=== PATIENT | female | born 1950 | race Caucasian/White ===

== ENCOUNTER → 2020-03-07 | Outpatient (CLI) | payer MEDICARE ==
[~2020-03-07] MED LIST: LACTATED RINGERS 1,000 ML IV SCH; LOSARTAN; PRAVASTATIN
== END | disposition home or self-care (01) ==
LOC: STAR 09:30
PROVIDERS: ATTEND Student in an Organized Health Care Education/Training Program
DX: Z01.818 Encounter for other preprocedural examination (principal); Z11.59 Encounter for screening for other viral diseases; N20.0 Calculus of kidney
CPT/HCPCS: 36415; 87635

== ENCOUNTER 2020-03-12 07:43 | Day surgery (SDC) | payer MEDICARE ==
[2020-03-07 09:59] VITALS: BP 129/82
[~2020-03-12] VITALS: Ht 170.2 cm; Wt 91.0 kg
[~2020-03-12 07:43] MED LIST changes: -LOSARTAN; +LOSARTAN PO; -PRAVASTATIN; +PRAVASTATIN PO
[2020-03-12] MEDS ORDERED: FENTANYL PF 100 MCG/2ML ONE (08:39)
[2020-03-12] MEDS ORDERED: MIDAZOLAM 1 MG/ML, 2ML ONE (08:40)
[2020-03-12] MEDS ORDERED: LACTATED RINGERS 1,000 ML IV SCH (08:43)
[2020-03-12 08:47] VITALS: BP 158/96
[2020-03-12] MEDS ORDERED: CHLORHEXIDINE 15 ML UDC ONE (08:50)
[2020-03-12] MEDS ORDERED: CHLORHEXIDINE 15 ML UDC MM ONE (09:00)
[2020-03-12] MEDS ORDERED: PROPOFOL 100 ML ONE (09:28)
[2020-03-12] MEDS ORDERED: DEXAMETHASONE 4 MG/ML, 1ML ONE (09:32)
[2020-03-12] MEDS ORDERED: NEOSTIGMINE 1 MG/ML, 10ML ONE (09:32)
[2020-03-12] MEDS ORDERED: SUCCINYLCHOLINE 20 MG/ML, 10ML ONE (09:32)
[2020-03-12] MEDS ORDERED: GLYCOPYRROLATE 0.2MG/1ML, 5ML ONE (09:32)
[2020-03-12] MEDS ORDERED: CEFAZOLIN 1,000 MG ONE (09:32)
[2020-03-12] MEDS ORDERED: ROCURONIUM 10MG/ML,5ML ONE (09:32)
[2020-03-12] MEDS ORDERED: ONDANSETRON 2MG/ML, 2ML ONE (09:32)
[2020-03-12] MEDS ORDERED: PROPOFOL 10 MG/ML, 20ML ONE ×2 (09:32→09:33)
[2020-03-12] MEDS ORDERED: OXYcodone 5 MG/5 ML ORAL.SOL UDC PO PRN (10:00)
[2020-03-12] MEDS ORDERED: ACETAMINOPHEN 325 MG TABLET PO PRN (10:00)
[2020-03-12] MEDS ORDERED: hydrALAzine 20 MG/ML, 1ML IV PRN (10:00)
[2020-03-12] MEDS ORDERED: ALBUTEROL SULFATE 2.5 MG/3 ML NPPB PRN (10:00)
[2020-03-12] MEDS ORDERED: DIAZEPAM 5 MG/ML, 2ML IVPush PRN (10:00)
[2020-03-12] MEDS ORDERED: KETOROLAC 30 MG/1 ML IV PRN (10:00)
[2020-03-12] MEDS ORDERED: LABETALOL 5MG/ML, 20ML IV PRN (10:00)
[2020-03-12] MEDS ORDERED: HYDROmorphone 2 MG/ML, 1ML IVPush PRN (10:00)
[2020-03-12] MEDS ORDERED: PROMETHAZINE 25 MG/ML, 1ML IV PRN (10:00)
[2020-03-12] MEDS ORDERED: MEPERIDINE/PF 25MG/0.5ML IVPush PRN (10:00)
[2020-03-12] MEDS ORDERED: FENTANYL PF 100 MCG/2ML IV PRN (10:00)
== END 2020-03-12 12:45 | disposition home or self-care (01) ==
LOC: OUT 07:43
PROVIDERS: ATTEND Student in an Organized Health Care Education/Training Program
DX: N20.0 Calculus of kidney (principal); N81.10 Cystocele, unspecified; E66.3 Overweight; Z68.30 Body mass index [BMI] 30.0-30.9, adult; Z79.899 Other long term (current) drug therapy; Z88.5 Allergy status to narcotic agent; Z88.8 Allergy status to other drugs, medicaments and biological substances; Z90.49 Acquired absence of other specified parts of digestive tract; Z90.710 Acquired absence of both cervix and uterus; Z98.890 Other specified postprocedural states; Z80.1 Family history of malignant neoplasm of trachea, bronchus and lung; Z80.0 Family history of malignant neoplasm of digestive organs
CPT/HCPCS: 52356; 74018; 88300; C1769; C2617; J0690; J1100; J2250; J2405; J2704; J3010; J7120; 76000; J2710; J0330